=== PATIENT | male | born 1980 | race African-American/Black ===

== ENCOUNTER → 2020-08-15 16:34 | Outpatient (CLI) | payer MEDICARE, MEDICAID, SELFPAY ==
--- NOTE | ~2020-08-15 | MR_ITS ---
EXAMINATION: MR brain/brain stem wo con DATE: 08/15/2020 17:42 INDICATION: Sarcoidosis TECHNIQUE: Magnetic resonance imaging (MRI) of the brain and brainstem was performed without intraven ous contrast. Sequences included sagittal and axial T1-weighted SE, axial diffusion-weighted FS SE, a xial T2*-weighted GRE, axial T2-weighted FLAIR, and axial T2-weighted FSE. Apparent diffusion coeffic ient (ADC) maps were created. COMPARISON: None. FINDINGS: There are no areas of restricted diffusion to suggest acute infarction. No intracranial hemorrhage or abnormal intracranial mass lesion. There are no intraparenchymal signal abnormalities seen on the ot her pulse sequences. The ventricles are symmetric and normal in size. There are no abnormal extra-axi al fluid collections. Flow voids are seen in the cerebral arteries on the T2-weighted sequences consi stent with their expected patency. Mild mucosal thickening the bilateral ethmoid sinuses. Visualized orbits and soft tissues are unremarkable. IMPRESSION: 1. Normal brain. Reviewed, dictated and finalized at location A. D PRINTER IMPRESSION: 1. Normal brain.
== END ==
PROVIDERS: PCP Student in an Organized Health Care Education/Training Program; Visit Provider Student in an Organized Health Care Education/Training Program
DX: D86.9 Sarcoidosis, unspecified (principal); R41.3 Other amnesia; R51.9 Headache, unspecified; G89.29 Other chronic pain
CPT/HCPCS: 70551

== ENCOUNTER → 2020-09-13 15:24 | Outpatient (CLI) | payer MEDICARE, MEDICAID, SELFPAY ==
--- NOTE | ~2020-09-13 | XR_ITS ---
EXAMINATION:XR cervical spine 4-5V DATE: 09/13/2020 15:52 INDICATION: Chronic right-sided neck pain and limited range of motion. TECHNIQUE: AP, lateral, lateral swimmers and odontoid views of the cervical spine are provided. COMPARISON: None FINDINGS: Odontoid is intact. Normal atlantoaxial interval. Slight reversal of the normal the dose in the lowe r cervical spine with mild disc height loss and mild bilateral uncovertebral osteoarthritis at C4-C5 and C5-C6. Vertebral body heights are normal. Prevertebral soft tissues are normal. Visualized apices of the lungs are clear. IMPRESSION: 1. Mild lower cervical spondylosis. Reviewed, dictated and finalized at location A. NT SERVICE PROFESSIONAL
== END ==
DX: M47.812 Spondylosis without myelopathy or radiculopathy, cervical region (principal)
CPT/HCPCS: 72050

== ENCOUNTER → 2021-01-30 10:35 | Outpatient (CLI) | payer MEDICARE, MEDICAID, SELFPAY ==
--- NOTE | ~2021-01-30 | MR_ITS ---
EXAMINATION: MR shoulder RT wo con DATE: 01/30/2021 11:10 INDICATION: Right shoulder pain TECHNIQUE: Magnetic resonance imaging (MRI) of the right shoulder was performed without intravenous c ontrast. Sequences included axial PD-weighted FS FSE, coronal oblique PD-weighted FS FSE, coronal obl ique T2-weighted FS FSE, sagittal PD-weighted FS FSE, and sagittal T1-weighted SE. COMPARISON: None. FINDINGS: Coracoacromial arch: Normal variant unfused meso acromial os acromiale and with low signal intensity fibrous synchondrosis . The acromion undersurface is curved in morphology (type II). The coracoacromial ligament is normal. Minimal acromioclavicular osteoarthritis. Rotator cuff: Mild supraspinatus and infraspinatus tendinopathy. Small partial-thickness intrasubstance tear along the superior facet footplate of the supraspinatus tendon which measures 7 mm AP and involves up to on e third of the tendon thickness. The subscapularis and teres minor tendons are normal. Normal rotator cuff muscle bulk and signal. Biceps tendon, glenoid labrum and glenohumeral cartilage: Long head of the biceps tendon is normal. Para labral cysts along the anterior and anterior-inferior glenoid labrum with subtle labral tear seen at the 5:00 position. The more cephalad cyst measures jerod roximately 1.4 x 0.6 x 1.2 cm and the more caudal measures 1.6 x 0.8 x 0.6 cm. Glenohumeral articular cartilage appears normal. Tiny subarticular cyst at the 6:00 position of the glenoid. Fluid: Physiologic amount of fluid in the glenohumeral joint and biceps tendon sheath. No loose osteochondra l bodies. No abnormally increased fluid signal in the subacromial/subdeltoid bursa consistent to sugg est bursitis. Bones: Normal marrow signal with no edema, fracture or pathologic marrow replacing process. IMPRESSION: 1. Mild supraspinatus and infraspinatus tendinopathy with small mild intrasubstance tear at the super ior facet footplate of the supraspinatus tendon. 2. Para labral cysts along the anterior and anteroinferior glenoid with subtle labral tear seen at le ast at the 5:00 position. Reviewed, dictated and finalized at location A. IMPRESSION: 1. Mild supraspinatus and infraspinatus tendinopathy with small mild intrasubst ance tear at the superior facet footplate of the supraspinatus tendon. 2. Para labral cysts along the anterior and anteroinferior glenoid with subtle labral tear seen at least at the 5:00 position.
== END ==
PROVIDERS: PCP Student in an Organized Health Care Education/Training Program; Visit Provider Student in an Organized Health Care Education/Training Program
DX: M25.511 Pain in right shoulder (principal); G89.29 Other chronic pain; S46.011A Strain of muscle(s) and tendon(s) of the rotator cuff of right shoulder, initial encounter
CPT/HCPCS: 73221

== ENCOUNTER 2022-02-13 20:58 | Emergency (ER) | payer OTHER, SELFPAY ==
[2022-02-13 21:23] VITALS: BP 147/95; PULSE 100; RESP 14; TEMP 36.4; O2SAT 100
[2022-02-13 22:11] VITALS: BP 133/82; PULSE 68; RESP 20; TEMP 36.9; O2SAT 99
[2022-02-13] MEDS: TETANUS,DIPHTHERIA,AC PERTUSSIS ADULT (0.5 ML) BOOSTRIX IM (22:48)
--- NOTE | 2022-02-13 23:24 | ED.WOUNDLAC ---
HPI - Wound/Laceration General Chief Complaint: Wound/Laceration Stated Complaint: lac to left eye Time Seen by Provider: 02/13/22 22:04 History of Present Illness HPI narrative: Patient is a 41-year-old male who presents ER with laceration near his left eye. Patient was helping move a lawnmower when the handle struck him in the face. It also struck his glasses and he lost a lens. No change in vision or pain in his eye. No loss consciousness. Unknown last tetanus vaccine. Related Data Allergies Allergy/AdvReac Type Severity Reaction Status Date / Time gadobenic acid Allergy Hives Verified 02/13/22 22:20 [From contrast - MRI] iohexol Allergy Hives Verified 02/13/22 22:20 [From contrast - CT, X-RAY] Review of Systems Eyes: Eyes: Denies change in vision and Denies photophobia Integumentary/Breasts: Skin/Breast: Denies erythema and Denies rash Comments: Left facial laceration Neurologic: Denies syncope and Denies headache(s) PMFSH Social History Social History Smoking status: Never smoker Second hand tobacco smoke exposure: No Alcohol intake: never Exam Narrative: GENERAL: Well-appearing, well-nourished, and in no acute distress. HEAD: Normocephalic, atraumatic. EYES: PERRLA and EOMI. ENT:Mucous membranes moist. SKIN: Warm, dry, no rash. 3 cm laceration beneath the left eye is a regular and contaminated with broken glass. NEURO: Alert and oriented x3. PSYCH: Normal mood and affect. Course Course Emergency Course: Patient received a tetanus shot. Wound closed. Discharge home. Vital Signs Vital signs: Vital Signs Temperature 97.6 F 02/13/22 21:23 Pulse Rate 100 02/13/22 21:23 Respiratory Rate 14 02/13/22 21:23 Blood Pressure 147/95 H 02/13/22 21:23 Pulse Oximetry 100 02/13/22 21:23 Oxygen Delivery Room Air 02/13/22 21:23 Temperature 98.5 F 02/13/22 22:11 Pulse Rate 68 02/13/22 22:11 Respiratory Rate 20 02/13/22 22:11 Blood Pressure 133/82 02/13/22 22:11 Pulse Oximetry 99 02/13/22 22:11 Oxygen Delivery Room Air 02/13/22 22:11 Procedures Laceration Laceration 1: Date: 02/13/22 Time: 23:15 Site: face Side (If applicable): left Size (cm): 3 Description: linear and contaminated Depth: simple, single layer Local Anesthetic: lidocaine 1% and with epi Amount of anesthesia used (mL): 2 Pre-repair: wound explored, irrigated extensively and minor debridement (6 small pieces of glass removed.) ====== Skin Level ====== Skin layer closed with: nylon Size (cm): 5-0 Number of sutures: 8 Technique: simple, interrupted ====== Subcutaneous Layer ====== ====== Muscle Layer ====== ====== Tendon Layer ====== Discharge Plan Discharge Clinical Impression: Laceration Patient Disposition: Home, Self-Care Condition: Stable Instructions: Care For Your Stitches (ED), Laceration (ED) Additional Instructions: You will need your sutures removed in 4 to 5 days. You may remove them yourself at home or have your primary care doctor remove them. If you are wound is red and hot or draining pus please return to the ER immediately. You received an updated tetanus shot today. Follow-up/Referrals: Sabina,DO Darrion [Primary Care Provider] - 1 Week
[2022-02-13 23:54] VITALS: BP 130/79; PULSE 72; RESP 18; O2SAT 99
== END 2022-02-13 23:56 | disposition home or self-care (01) ==
PROVIDERS: Emergency Provider Emergency Medicine; PCP Student in an Organized Health Care Education/Training Program
DX: S01.82XA Laceration with foreign body of other part of head, initial encounter (principal); Z23 Encounter for immunization; W22.8XXA Striking against or struck by other objects, initial encounter
CPT/HCPCS: 12013; 90471; 90715; 99282

== ENCOUNTER 2022-11-26 10:59 | Outpatient (CLI) | payer OTHER, SELFPAY ==
--- NOTE | ~2022-11-26 | XR_ITS ---
EXAMINATION: XR elbow RT 2V DATE: 11/26/2022 12:53 INDICATION: Multiple joint pain including posterior right elbow pain TECHNIQUE: Anteroposterior and lateral views of the right elbow were obtained. COMPARISON: None. FINDINGS: Alignment is normal. No fracture or joint effusion. Joint spaces are normal. Small enthesophyte at th e tip of the olecranon. Soft tissues are unremarkable. IMPRESSION: 1. Small olecranon enthesophyte. Otherwise unremarkable right elbow radiographs. Reviewed, dictated and finalized at location A. IMPRESSION: 1. Small olecranon enthesophyte. Otherwise unremarkable right elbow radiographs .
--- NOTE | ~2022-11-26 | XR_ITS ---
EXAMINATION: XR_KNEE1-2VRT_CR, XR_KNEE1-2VLT_CR DATE: 11/26/2022 12:53 INDICATION: Multiple joint pain TECHNIQUE: 1. Standing AP and lateral views of the left knee were obtained. 2. Standing AP and lateral views of the right knee were obtained. COMPARISON: None. FINDINGS: Bone alignment is normal. No acute fracture. 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 Joint spaces are normal in nancy th knees. Small inferior marginal osteophytes at the bilateral patellae consistent with at least mild osteoarthritis. Soft tissues are unremarkable with no joint effusions. IMPRESSION: 1. Mild bilateral patellofemoral osteoarthritis. Reviewed, dictated and finalized at location A. IMPRESSION: 1. Mild bilateral patellofemoral osteoarthritis.
--- NOTE | ~2022-11-26 | XR_ITS ---
EXAMINATION: XR wrist LT 2V, XR hand LT 2V, XR hand RT 2V, XR wrist RT 2V DATE: 11/26/2022 12:53 INDICATION: Bilateral hand and wrist pain. TECHNIQUE: 1. Posteroanterior and lateral views of the left wrist were obtained. 2. Dorsal palmar and lateral views of the left hand were obtained. 3. Posteroanterior and lateral views of the right wrist were obtained. 4. Dorsal palmar and lateral views of the right hand were obtained. COMPARISON: None. FINDINGS: Normal alignment at the bilateral hands and wrists. No fracture identified. Mild osteoarthritis at th e bilateral distal radial ulnar joints. Remaining joint spaces are normal. No erosions to suggest inf lammatory arthritis. Normal soft tissues at the bilateral hands and wrists. IMPRESSION: 1. Mild osteoarthritis at the bilateral distal radioulnar joints. Reviewed, dictated and finalized at location A. IMPRESSION: 1. Mild osteoarthritis at the bilateral distal radioulnar joints. IMPRESSION: 1. Mild osteoarthritis at the bilateral distal radioulnar joints. IMPRESSION: 1. Mild osteoarthritis at the bilateral distal radioulnar joints.
--- NOTE | ~2022-11-26 | XR_ITS ---
EXAM: XR shoulder RT min 2V DATE: 11/26/2022 12:53 HISTORY: Multiple Joint Pain . COMPARISON: None available. FINDINGS: Normal mineralization. No fracture or dislocation. No lytic or blastic lesion. Mild degene rative change at the AC joint and glenohumeral joint. No erosion or periosteal change. Soft tissues w ithin normal limits. IMPRESSION: Mild polyarticular osteoarthritis. Reviewed, dictated and finalized at location K.
== END 2022-11-26 11:00 ==
PROVIDERS: PCP Student in an Organized Health Care Education/Training Program; Visit Provider Internal Medicine Rheumatology
DX: M25.59 Pain in other specified joint (principal); M15.9 Polyosteoarthritis, unspecified; M77.8 Other enthesopathies, not elsewhere classified
CPT/HCPCS: 73030; 73070; 73100; 73120; 73560

== ENCOUNTER 2024-05-13 11:43 | Emergency (ER) | payer OTHER, SELFPAY ==
--- NOTE | ~2024-05-13 | XR_ITS ---
EXAMINATION: XR tibia fibula LT 2V DATE: 05/13/2024 12:31 INDICATION: Left calf pain. TECHNIQUE: 2 views of left tibia and fibula on 4 radiographs were obtained. COMPARISON: None. FINDINGS: Alignment is normal. No fracture. There is mild left knee osteoarthritis. There is mild mid foot osteoarthritis. IMPRESSION: 1. Mild polyarticular osteoarthritis. Reviewed, dictated and finalized at location A.
[2024-05-13 11:55] VITALS: BP 128/79; PULSE 55; RESP 14; TEMP 36.6; O2SAT 99
--- NOTE | 2024-05-13 12:08 | ED.EXTPRO ---
HPI - Extremity Problem General Chief complaint: Extremity Problem,Nontraumatic Stated complaint: left calf pain Time Seen by Provider: 05/13/24 11:59 History of Present Illness HPI Narrative: 43-year-old male presents with left calf pain since last night. Patient states he was playing basketball came down on his left foot and felt a pop in his calf. Patient having pain with ambulation. Patient had a Devon bandage to left calf. Patient denies any history of knee issues. Patient denies any other injury Onset (ago): day(s) (1) Related Data Allergies Allergy/AdvReac Type Severity Reaction Status Date / Time gadobenic acid Allergy Hives Verified 02/13/22 22:20 [From contrast - MRI] iohexol Allergy Hives Verified 02/13/22 22:20 [From contrast - CT, X-RAY] Review of Systems Review of Systems: A 10 system review of systems was completed on the patient and is negative except for what is stated in the HPI. Nursing and ancillary documentation was reviewed. [facility] Social History Social History Smoking status: Never smoker Second hand tobacco smoke exposure: No Alcohol intake: never Exam Narrative: GENERAL: Well-appearing, well-nourished, and in no acute distress. HEAD: Normocephalic, atraumatic. EYES: PERRLA and EOMI. ENT: Nares clear, no rhinorrhea or epistaxis. Mucous membranes moist. NECK: Supple. CHEST: Clear to auscultation. No respiratory distress. HEART: Regular rate and rhythm. No murmur heard. Normal peripheral pulses. ABDOMEN: Soft, nontender, nondistended, normal active bowel sounds. EXTREMITIES: decreased flexion to left foot. increased pain to left calf SKIN: Warm, dry, no rash. NEURO: No focal deficits. Alert and oriented x3. PSYCH: Normal mood and affect. Course Course Emergency Course: All imaged left calf to rule out structural exam Vital Signs Vital signs: Vital Signs Temperature 36.6 C 05/13/24 11:55 Pulse Rate 55 L 05/13/24 11:55 Respiratory Rate 14 05/13/24 11:55 Blood Pressure 128/79 05/13/24 11:55 Pulse Oximetry 99 05/13/24 11:55 Oxygen Delivery Room Air 05/13/24 11:55 Temperature 36.6 C 05/13/24 11:55 Pulse Rate 55 L 05/13/24 11:55 Respiratory Rate 14 05/13/24 11:55 Blood Pressure 128/79 05/13/24 11:55 Pulse Oximetry 99 05/13/24 11:55 Oxygen Delivery Room Air 05/13/24 11:55 MDM - Extremity (Nontraumatic) MDM Narrative Medical decision making narrative: X-ray negative. Will treat with rice, crutches, ortho referral as needed Differential Diagnosis Differential diagnosis: Likely other (Calf strain versus torn calf muscle) Discharge Plan Discharge Clinical Impression: Strain of left calf muscle Patient Disposition: Home, Self-Care Condition: Stable Instructions: Antibiotic Form, Muscle Strain (ED) Additional Instructions: Take medications as prescribed Apply ice 4 times a day 20 minutes at [facility] in 1 week if not any better Prescriptions: New naproxen 500 mg tablet 500 mg PO BID Qty: 20 0RF Follow-up/Referrals: Sabina,DO Darrion [Primary Care Provider] - Erik Vargas MD [Physician] - Time of Disposition: 12:47
== END 2024-05-13 13:20 | disposition home or self-care (01) ==
PROVIDERS: Emergency Provider Nurse Practitioner Family; PCP Student in an Organized Health Care Education/Training Program
DX: S86.812A Strain of other muscle(s) and tendon(s) at lower leg level, left leg, initial encounter (principal); T14.90XA Injury, unspecified, initial encounter; Y93.67 Activity, basketball
CPT/HCPCS: 73590; 99283

== ENCOUNTER 2024-12-02 11:58 | Outpatient (CLI) | payer MEDICARE, MEDICAID, SELFPAY ==
--- NOTE | ~2024-12-02 | MR_ITS ---
MRI of the left knee Clinical history: Arthritis Technique: Coronal proton density and proton density-weighted images, sagittal proton-density and T2 fat-sat images, and axial proton-density fat-saturated images were acquired. Findings: Anterior and posterior cruciate ligaments are intact. Medial collateral ligament and the la teral collateral ligament complex are intact. Popliteus tendon is intact. Medial and lateral menisci are intact, without evidence of tear. There is moderate to high-grade chondromalacia at the inferior aspect of the patella. There is modera te chondral malacia at the superior aspect of the femoral trochlea centrally. Articular cartilage in the medial lateral compartments is well preserved. Extensor mechanism is intact. No significant joint effusion. No Crowder's cyst. Impression: Patellofemoral compartment degenerative change, as detailed above. Reviewed, dictated and finalized at location . Impression: Patellofemoral compartment degenerative change, as detailed above.
--- NOTE | ~2024-12-02 | MR_ITS ---
MRI of the right knee Clinical history: Arthritis Technique: Coronal proton density and proton density-weighted images, sagittal proton-density and T2 fat-sat images, and axial proton-density fat-saturated images were acquired. Findings: Anterior and posterior cruciate ligament are intact. Medial collateral ligament and the lat eral collateral ligament complex are intact. Popliteus tendon is intact. Medial and lateral menisci are intact, without evidence of tear. There is focal moderate chondromalacia at the medial aspect of the femoral trochlea. Remaining articu lar cartilage is well preserved. Bone marrow signals are unremarkable. Extensor mechanism is intact. There is mild enthesopathic change/tendinosis at the proximal patellar tendon. No significant joint effusion or Crowder's cyst. Impression: Focal moderate chondromalacia the femoral trochlea. Enthesopathic change/tendinosis of the proximal patellar tendon. Reviewed, dictated and finalized at [facility]. Impression: Focal moderate chondromalacia the femoral trochlea. Enthesopathic change/tendinosis of the proximal patellar tendon.
== END 2024-12-02 11:59 | disposition home or self-care (01) ==
LOC: MICIMG 12:00
PROVIDERS: PCP Student in an Organized Health Care Education/Training Program; Visit Provider Physician Assistant
DX: M94.261 Chondromalacia, right knee (principal); M76.51 Patellar tendinitis, right knee; M17.12 Unilateral primary osteoarthritis, left knee
CPT/HCPCS: 73721

== ENCOUNTER 2025-05-24 08:43 | Outpatient (CLI) | payer MEDICARE, MEDICAID, SELFPAY ==
--- NOTE | ~2025-05-24 | XR_ITS ---
EXAMINATION: XR shoulder RT min 2V, 05/24/2025 8:51 CDT HISTORY: CHRONIC RT SHOULDER PAIN W/ DECREASED MOBILITY POPPING COMPARISON: No comparisons available. Findings: No acute fracture or malalignment. No significant degenerative changes. Soft tissues unremarkable. Impression: No acute fracture or malalignment. Reviewed, dictated and finalized at location P. Impression: No acute fracture or malalignment.
--- NOTE | ~2025-05-24 | XR_ITS ---
XR knee RT 3V 05/24/2025 09:17 Indication: Chronic right anterior knee pain Procedure: 3 views right knee Comparison: No prior studies for comparison. Findings: Avulsion fracture inferior aspect of the patella. Mild prepatellar soft tissue swelling. No significant joint effusion. Impression: 1: Avulsion fracture inferior aspect of the patella, age indeterminate. Reviewed, dictated and finalized at location O. Impression: 1: Avulsion fracture inferior aspect of the patella, age indeterminate.
--- NOTE | ~2025-05-24 | XR_ITS ---
EXAMINATION: XR knee LT 3V, 05/24/2025 8:51 CDT HISTORY: CHRONIC ANTERIOR LT KNEE PAIN WEAKNESS COMPARISON: No comparisons available. Findings: No acute fracture or malalignment. No significant degenerative changes. Soft tissues unremarkable. Impression: No acute fracture or malalignment. Reviewed, dictated and finalized at location P. Impression: No acute fracture or malalignment.
== END 2025-05-24 08:44 | disposition home or self-care (01) ==
PROVIDERS: PCP Student in an Organized Health Care Education/Training Program; Visit Provider Physician Assistant
DX: S82.091A Other fracture of right patella, initial encounter for closed fracture (principal); M25.511 Pain in right shoulder; M25.562 Pain in left knee; X58.XXXA Exposure to other specified factors, initial encounter
CPT/HCPCS: 73030; 73562